=== PATIENT | male | born 1955 | race Caucasian/White ===

== ENCOUNTER → 2017-10-28 | Outpatient (CLI) | payer BC ==
[~2017-10-28] MED LIST: NAPR1TAB PO; OMEP-110 PO; PRAV40TA2 PO; SULF-169 PO
[2017-10-28 09:11] LABS: HEMATOCRIT 48.4 % (39.2-51.8); HEMOGLOBIN 16.5 g/dL (13.7-18.0); WHITE BLOOD COUNT 8.2 x10^3/uL (3.4-10)
[2017-10-28 09:18] LABS: ASPARTATE AMINO TRANSFERASE 18 U/L (15-37); BLOOD UREA NITROGEN 20 mg/dL (7-18)
== END | disposition home or self-care (01) ==
LOC: STAR 07:46
PROVIDERS: ATTEND Urology
DX: Z01.818 Encounter for other preprocedural examination (principal); R94.31 Abnormal electrocardiogram [ECG] [EKG]; N21.0 Calculus in bladder; N40.0 Benign prostatic hyperplasia without lower urinary tract symptoms
CPT/HCPCS: 36415; 80053; 81003; 85025; 85610; 85730; 87086; 93005

== ENCOUNTER 2017-11-04 09:22 | Observation (INO) | payer BC ==
[2017-10-28 08:11] VITALS: BP 150/101
[~2017-11-04] VITALS: Ht 182.9 cm; Wt 99.7 kg
[2017-11-04] MEDS ORDERED: LACTATED RINGERS 1,000 ML IV SCH (09:49)
[2017-11-04] MEDS ORDERED: LIDOCAINE 1%, 2ML ONE (09:57)
[2017-11-04 10:00] VITALS: BP 148/82
[2017-11-04] MEDS ORDERED: LIDOCAINE 1%, 2ML SQ PRN (10:00)
[2017-11-04] MEDS ORDERED: PROPOFOL 10 MG/ML, 20ML ONE (11:15)
[2017-11-04] MEDS ORDERED: CEFAZOLIN 1,000 MG ONE (11:15)
[2017-11-04] MEDS ORDERED: NEOSTIGMINE 1 MG/ML, 10ML ONE (11:15)
[2017-11-04] MEDS ORDERED: ONDANSETRON 2MG/ML, 2ML ONE (11:15)
[2017-11-04] MEDS ORDERED: GLYCOPYRROLATE 0.2MG/1ML, 5ML ONE (11:15)
[2017-11-04] MEDS ORDERED: SUCCINYLCHOLINE 20 MG/ML, 10ML ONE (11:15)
[2017-11-04] MEDS ORDERED: DEXAMETHASONE 4 MG/ML, 1ML ONE (11:15)
[2017-11-04] MEDS ORDERED: ROCURONIUM 10 MG/ML,10ML ONE (11:15)
[2017-11-04] MEDS ORDERED: LABETALOL 5MG/ML, 20ML IV PRN (11:30)
[2017-11-04] MEDS ORDERED: METOCLOPRAMIDE 5 MG/ML, 2ML IV PRN (11:30)
[2017-11-04] MEDS ORDERED: HYDROmorphone 1 MG/ML, 1ML IV PRN (11:30)
[2017-11-04] MEDS ORDERED: hydrALAzine 20 MG/ML, 1ML IV PRN (11:30)
[2017-11-04] MEDS ORDERED: FENTANYL PF 100 MCG/2ML IV PRN (11:30)
[2017-11-04] MEDS ORDERED: ONDANSETRON 2MG/ML, 2ML IVPush PRN ×2 (11:30→16:30)
[2017-11-04] MEDS ORDERED: ACETAMINOPHEN 325 MG TABLET PO PRN (11:30)
[2017-11-04] MEDS ORDERED: OXYcodone 5 MG/5 ML ORAL.SOL UDC PO PRN (11:30)
[2017-11-04] MEDS ORDERED: OXYcodone 5 MG/5 ML ORAL.SOL UDC ONE (13:00)
[2017-11-04] MEDS ORDERED: OPIUM/BELLADONNA SUPP.RECT 16.2-30 MG PR PRN (16:30)
[2017-11-04] MEDS ORDERED: D5%-0.9% NACL+KCL 20MEQ 1,000 ML IV SCH (20:30)
== END 2017-11-04 18:40 | disposition home or self-care (01) ==
LOC: OUT 09:22 → ORIP 16:23
PROVIDERS: ADMIT Urology; ATTEND Urology
DX: N21.0 Calculus in bladder (principal); N35.8 Other urethral stricture; N40.1 Benign prostatic hyperplasia with lower urinary tract symptoms; E78.5 Hyperlipidemia, unspecified; I10 Essential (primary) hypertension; K21.9 Gastro-esophageal reflux disease without esophagitis; M19.90 Unspecified osteoarthritis, unspecified site; Z86.711 Personal history of pulmonary embolism; Z86.73 Personal history of transient ischemic attack (TIA), and cerebral infarction without residual deficits
CPT/HCPCS: 52276; 52317; 52601; 82360; 88300; 88305; C1758; C1769; G0378; J0330; J0690; J1100; J2405; J2704; J2710; J3490; J7120